=== PATIENT | female | born 1945 | race Caucasian/White ===

== ENCOUNTER 2020-01-16 14:34 | Outpatient (CLI) | payer MEDICARE, SELFPAY ==
[2020-01-16 14:54] LABS: Basophils % 0.4 %; Eosinophils % 0.9 %; Hematocrit 38.3 % (37.0-47.0); Hemoglobin 12.2 g/dL (11.5-15.3); Lymphocytes # 1.4 10^3/uL (0.8-4.8); Lymphocytes % 31.8 %; Mean Corpuscular HGB Conc 31.9 g/dL (30.0-36.0); Mean Corpuscular Volume 87.8 fL (81-99); Monocytes # 0.4 10^3/uL (0.2-0.9); Monocytes % 8.5 %; Neutrophils # 2.6 10^3/uL (1.8-7.7); Neutrophils % 58.2 %; Nucleated Red Blood Cells % 0 %; Platelet Count 162 10^3/cmm (130-400); Red Blood Count 4.36 10^6/uL (4.1-5.3); Red Cell Distribution Width 13.3 % (12.1-15.1); White Blood Count 4.5 10^3/uL (4.0-10.0)
[2020-01-16 15:14] LABS: Alanine Aminotransferase 15 U/L (0-33); Albumin Level 3.9 g/dL (3.5-5.2); Alkaline Phosphatase 66 IU/L (35-105); Aspartate Amino Transferase 20 U/L (0-32); Blood Urea Nitrogen 15 mg/dL (8-23); Calcium 9.8 mg/dL (8.5-10.5); Carbon Dioxide 28 mmol/L (22-29); Chloride 102 mmol/L (98-107); Globulin 3.5 g/dL (1.3-4.6); Glucose 105 mg/dL (65-115); Sodium 140 mmol/L (136-145); Total Bilirubin 0.3 mg/dL (0.15-1.2); Total Protein 7.4 g/dL (6.6-8.7)
--- NOTE | 2020-01-16 15:57 | ONC FU_ITS ---
Dr. Velez follow up note Patient: Angelina Dunn Unit #: [id number]: 1945 Dicatated By: Kartik Velez M.D.Date of Visit:Jan 16, 2020 Onc Med Follow-up/Prog Note History of Present Illness: Mrs. Angelina Dunn, is a 74-year-old female history of chronic back pain/weakness since age 11, as per patient that time she used to wear brace but her back weakness never improved and slowly gradually start having chronic back pain. And at one point she was told that she may have osteoporosis too. And about 2 months ago she noted lump in her right breast and on 07/26/2019 she underwent bilateral mammogram which showed 5 cm from nipple at 1:00 position there is a irregular marginated mass lesion of mixed to decrease echotexture size about 6 x 6 x 9.7 x 10 mm and it was BI-RADS Category 5, highly suggestive of malignancy and on 08/17/2019 she underwent ultrasound-guided needle biopsy of right breast mass which showed infiltrating ductal carcinoma with DCIS component 25%. Ki-67 6%, favorable, Estrogen receptor 98% and progesterone receptor 99%, HER-2/alyssa negative. Underwent right modified mastectomy with sentinel lymph node dissection on 09/13/2019 final pathology report showed 1.1 cm invasive tumor with clear margins pT1c and 1 sentinel lymph node was removed and examined showed no metastatic disease N0 Oncotype DX score on 09/19/2019 showed recurrence score 4, no benefit from chemotherapy and with aromatase inhibitor risk of distant metastases at 9 years about 3% tolerating Arimidex well Came for follow-up, denies any specific complaints, no fever or chills, no nausea or vomiting, no diarrhea constipation, occasionally hot flashes otherwise tolerating Arimidex/vitamin D/calcium well. Medications: Anastrozole 1 Tablet (of 1 mg) Oral daily, Gabapentin 1 Capsule (of 100 mg) Oral daily, HYDROcodone-Acetaminophen 1 Tablet (of 10-325 mg) Oral four times a day, Levothyroxine Sodium 1 Tablet (of 100 mcg) Oral daily, Melatonin 1 Tablet (of 5 mg) Oral at bedtime, Omeprazole 1 Tablet (of 20 mg) Tablet, enteric coated Oral daily, traMADol HCl 1 Tablet (of 50 mg) Oral daily Allergies: No Known Allergies. Review of Systems: Review of Systems is not available for this patient. Vital Signs: Vitals are not available for this patient. Performance Status: 0 - Fully active, able to carry on all predisease activities without restrictions. (ECOG) Physical Examination: Hematologic/Lymphatic - No tender or palpable lymph nodes in the cervical, supraclavicular, axillary or inguinal area, Respiratory - Lungs are clear to auscultation without rhonchi or wheezing, Cardiovascular - Regular rate and rhythm of heart, Extremities - no edema, Integumentary - No rashes. Lab/Imaging: Test performed on Sep 27, 2019 11:35 Sodium 138 mmol/L Potassium 3.9 mmol/L Chloride 102 mmol/L CO2 26 mmol/L Anion Gap 13.9 BUN 10 mg/dL Creatinine 0.7 mg/dL Cr Clearance (Est) 55.49 mL/min Glucose 145 mg/dl Calcium 9.9 mg/dL Protein, Total 6.9 g/dL Albumin 4.8 g/dL Globulin 2.1 gm/dL Bilirubin, Total 0.5 mg/dL ALT (SGPT) 8 U/L AST (SGOT) 17 U/L Alkaline Phosphatase 62 U/L WBC 5.9 10 3/uL RBC 4.31 10 6/uL HGB 12.9 g/dl HCT 38.0 % MCV 88.2 fl MCH 30.1 pg MCHC 34.1 g/dl RDW 14.9 % Platelet Count 150 10 3/cmm MPV 9.5 fl Neutrophils 4.5 10 3/uL Lymphocytes 0.9 10 3/uL Monocytes 0.4 10 3/uL Eosinophils 0.1 10 3/uL Basophils 0.0 10 3/uL Neutrophil % 76.0 % Lymphocyte % 16.0 % Monocyte % 6.4 % Eosinophil % 1.2 % Basophils % 0.4 % Impression: Infiltrating ductal carcinoma of the right breast status post right MRM with sentinel lymph node dissection done on 09/13/2019 and final pathology report showed 1.1 cm invasive mass with clear surgical margin pT1c and 1 sentinel lymph node was removed showed no evidence of metastatic disease pN0 Stage IA ultrasound-guided needle biopsy of right breast done on 08/17/2019 showed estrogen receptor 98% progesterone receptor 99%, HER-2/alyssa negative and Ki-67, 6% favorable. Oncotype DX score is low , 4 e.g. absolute benefit from chemotherapy less than 1% and with aromatase inhibitor risk of distant recurrence at 9 years is about 3% Started on adjuvant therapy with Arimidex 1 mg by mouth daily for 5 years along with vitamin D and calcium supplement on 09/01/2019 Mammogram done on 07/26/2019 showed BI-RADS currently 5 mass in the right breast, 5 cm from the nipple at 1:00 position, History of chronic back pain/weakness since age 11 Questionable history of osteoporosis Plan: Discussed with patient regarding her labs white blood count 4.5 hemoglobin 12.2 crit 38.3 platelets 162,000 CMP within normal limits Clinically, patient doing well with no signs symptoms chest tube recurrence of disease, tolerating Arimidex/vitamin D/calcium well but with expected side effects. We'll continue with same and she will return to clinic in 3 months with CBC CMP. Patient is also scheduled for DEXA scan, as per patient she is scheduled for this tomorrow morning, we will follow with that. Signed By: Kartik Velez M.D. <<Signature on File>>
== END 2020-01-16 14:35 | disposition home or self-care (01) ==
LOC: ONCMED 14:34
PROVIDERS: PCP Family Medicine; Visit Provider Internal Medicine Hematology & Oncology
DX: C50.211 Malignant neoplasm of upper-inner quadrant of right female breast (principal); G89.29 Other chronic pain; M54.9 Dorsalgia, unspecified; Z17.0 Estrogen receptor positive status [ER+]; Z79.811 Long term (current) use of aromatase inhibitors; Z79.891 Long term (current) use of opiate analgesic; Z79.899 Other long term (current) drug therapy
CPT/HCPCS: 36415; 80053; 85025; 99214

== ENCOUNTER 2020-05-09 14:45 | Outpatient (CLI) | payer MEDICARE, SELFPAY ==
[2020-05-09 15:52] LABS: Alanine Aminotransferase 8 U/L (0-33); Albumin Level 4.1 g/dL (3.5-5.2); Alkaline Phosphatase 59 IU/L (35-105); Anion Gap 15.2 (5-19); Aspartate Amino Transferase 14 U/L (0-32); Blood Urea Nitrogen 13 mg/dL (8-23); Calcium 9.6 mg/dL (8.5-10.5); Carbon Dioxide 26 mmol/L (22-29); Chloride 98 mmol/L (98-107); Globulin 3.1 g/dL (1.3-4.6); Glucose 99 mg/dL (65-115); Osmolality Calculated 276 mOsm/kg (285-295); Potassium 4.2 mmol/L (3.5-5.1); Sodium 135 mmol/L (136-145); Total Bilirubin 0.3 mg/dL (0.15-1.2); Total Protein 7.2 g/dL (6.6-8.7)
--- NOTE | 2020-05-09 16:33 | ONC FU_ITS ---
Dr. Velez follow up note Patient: Angelina Dunn Unit #: [id number]: 1945 Dicatated By: Kartik Velez M.D.Date of Visit:May 09, 2020 Onc Med Follow-up/Prog Note History of Present Illness: Mrs. Angelina Dunn, is a 74-year-old female history of chronic back pain/weakness since age 11, as per patient that time she used to wear brace but her back weakness never improved and slowly gradually start having chronic back pain. And at one point she was told that she may have osteoporosis too. And about 2 months ago she noted lump in her right breast and on 07/26/2019 she underwent bilateral mammogram which showed 5 cm from nipple at 1:00 position there is a irregular marginated mass lesion of mixed to decrease echotexture size about 6 x 6 x 9.7 x 10 mm and it was BI-RADS Category 5, highly suggestive of malignancy and on 08/17/2019 she underwent ultrasound-guided needle biopsy of right breast mass which showed infiltrating ductal carcinoma with DCIS component 25%. Ki-67 6%, favorable, Estrogen receptor 98% and progesterone receptor 99%, HER-2/alyssa negative. Underwent right modified mastectomy with sentinel lymph node dissection on 09/13/2019 final pathology report showed 1.1 cm invasive tumor with clear margins pT1c and 1 sentinel lymph node was removed and examined showed no metastatic disease N0 Oncotype DX score on 09/19/2019 showed recurrence score 4, no benefit from chemotherapy and with aromatase inhibitor risk of distant metastases at 9 years about 3% tolerating Arimidex well DEXA scan was done on January 17, [address] Dexter showed left femoral neck BMD 0.43 g/cm and T score is -3.7 and Z score is -1.6 and total hip BMD is 0.498 g/cm??? and T score is -3.6 and Z score is -1.6 and BMD is within the range of osteoporosis Patient is on vitamin D and calcium supplement and also on aromatase inhibitor Came for follow-up, denies any specific complaints, no fever chills, no nausea or vomiting, no diarrhea or constipation occasionally hot flashes otherwise tolerating Arimidex/vitamin D/calcium well. Medications: Anastrozole 1 Tablet (of 1 mg) Oral daily, Gabapentin 1 Capsule (of 100 mg) Oral daily, HYDROcodone-Acetaminophen 1 Tablet (of 10-325 mg) Oral four times a day, Levothyroxine Sodium 1 Tablet (of 100 mcg) Oral daily, Melatonin 1 Tablet (of 5 mg) Oral at bedtime, Omeprazole 1 Tablet (of 20 mg) Tablet, enteric coated Oral daily, traMADol HCl 1 Tablet (of 50 mg) Oral daily Allergies: No Known Allergies. Review of Systems: Review of Systems is not available for this patient. Vital Signs: Performed on May 09, 2020 16:21 Height - 67.00 in Weight - 118.0 lbs (HIGH) BSA - 1.62 sq.m BMI - 18.48 Temperature - 97.9 F (LOW) Pulse - 91 /min Respiration - 18 /min BP - 132/80 mm(hg) O2 Sat - 95 % (LOW) Pain - 4 Performance Status: 0 - Fully active, able to carry on all predisease activities without restrictions. (ECOG) Physical Examination: Respiratory - Lungs are clear, Cardiovascular - Regular rate and rhythm of heart, Extremities - No visible edema or rash. Lab/Imaging: Test performed on May 09, 2020 15:15 Sodium 135 mmol/L Potassium 4.2 mmol/L Chloride 98 mmol/L CO2 26 mmol/L Anion Gap 15.2 BUN 13 mg/dL Creatinine 0.6 mg/dL Cr Clearance (Est) 68.4500 mL/min Glucose 99 mg/dL Calcium 9.6 mg/dL Protein, Total 7.2 g/dL Albumin 4.1 g/dL Globulin 3.1 g/dL Bilirubin, Total 0.3 mg/dL ALT (SGPT) 8 U/L AST (SGOT) 14 U/L Alkaline Phosphatase 59 IU/L Test performed on Jan 16, 2020 14:40 WBC 4.5 10 3/uL RBC 4.36 10 6/uL HGB 12.2 g/dL HCT 38.3 % MCV 87.8 fL MCH 28.0 pg MCHC 31.9 g/dL RDW 13.3 % Platelet Count 162 10 3/cmm MPV 11.0 fL Neutrophils 2.6 10 3/uL Lymphocytes 1.4 10 3/uL Monocytes 0.4 10 3/uL Eosinophils 0.0 10 3/uL Basophils 0.0 10 3/uL Neutrophil % 58.2 % Lymphocyte % 31.8 % Monocyte % 8.5 % Eosinophil % 0.9 % Basophils % 0.4 % Impression: Infiltrating ductal carcinoma of the right breast status post right MRM with sentinel lymph node dissection done on 09/13/2019 and final pathology report showed 1.1 cm invasive mass with clear surgical margin pT1c and 1 sentinel lymph node was removed showed no evidence of metastatic disease pN0 Stage IA ultrasound-guided needle biopsy of right breast done on 08/17/2019 showed estrogen receptor 98% progesterone receptor 99%, HER-2/alyssa negative and Ki-67, 6% favorable. Oncotype DX score is low , 4 e.g. absolute benefit from chemotherapy less than 1% and with aromatase inhibitor risk of distant recurrence at 9 years is about 3% Started on adjuvant therapy with Arimidex 1 mg by mouth daily for 5 years along with vitamin D and calcium supplement on 09/01/2019 Mammogram done on 07/26/2019 showed BI-RADS currently 5 mass in the right breast, 5 cm from the nipple at 1:00 position, History of chronic back pain/weakness since age 11 Questionable history of osteoporosis Plan: Discussed with patient regarding her labs CMP shows normal values, CBC could not be done due to clumping and next time we will draw her blood and heparinized tube to prevent clumping And DEXA scan findings which shows osteoporosis Clinically, patient doing well with no signs symptom suggestive of recurrence of disease, tolerating Arimidex/vitamin D/calcium well. Discussed with patient regarding her DEXA scan findings and patient is not aware whether Dr. Dexter has started her on any treatment for osteoporosis, will discuss with Dr. Dexter, her PMD regarding DEXA scan findings and risk of osteoporosis specially with treatment with aromatase inhibitor e.g. Arimidex. We will also consider vitamin D level with the next blood drawn when she return to clinic in 4 months at that time we will draw CBC and heparinized tube to prevent clumping. As far as osteoporosis concerned, will consider Prolia 60 mg subcu single dose every [address] Dexter, PMD plans otherwise. Signed By: Kartik Velez M.D. <<Signature on File>>
== END 2020-05-09 14:46 | disposition home or self-care (01) ==
LOC: ONCMED 14:49
PROVIDERS: PCP Family Medicine; Visit Provider Internal Medicine Hematology & Oncology
DX: C50.211 Malignant neoplasm of upper-inner quadrant of right female breast (principal); Z17.0 Estrogen receptor positive status [ER+]; M81.0 Age-related osteoporosis without current pathological fracture; Z79.811 Long term (current) use of aromatase inhibitors
CPT/HCPCS: 80053; 85025; 99214